=== PATIENT | male | born 1980 | race Two or more races ===

== ENCOUNTER 2017-05-19 12:54 | Emergency (ER) | payer MEDICAID ==
[2017-05-19 12:59] VITALS: RESP 16; O2SAT 98
--- NOTE | 2017-05-19 13:13 | CPEKG ---
Heart Rate: 75 RR Interval: 800 P-R Interval: 148 QRSD Interval: 100 QT Interval: 412 QTC Interval: 461 P [place]: 43 QRS [place]: -19 T Wave [place]: 22 EKG Severity - OTHERWISE NORMAL ECG - EKG Impression: SINUS RHYTHM EKG Impression: BORDERLINE LEFT AXIS DEVIATION Electronically Signed By: Dante Figueroa 19-May-2017 13:27:15
[2017-05-19] MEDS ORDERED: ACETAMINOPHEN 325 MG TAB PO ONE (13:23)
--- NOTE | 2017-05-19 13:26 | EDPHY ---
H & P Time Seen by Provider: 05/19/17 13:08 HPI/ROS: CHIEF COMPLAINT: Chest pains HISTORY OF PRESENT ILLNESS: 36-year-old man was sent from [facility] for evaluation of chest pain. He tells me he has been having central chest pressure which is sometimes sharp about once a month for the past 2 years. He had 1 yesterday in the morning which lasted about 10 min and he had another episode today at 1:00 p.m. which lasted 5 min. Describes it as central chest sharpness the feels like he swallowed water too fast and the maximum duration over the last 2 years is 15-20 minutes. It is not reliably associated with anything in particular. Symptoms are gone currently. Does not radiate when it happens. Moderate when present but gone now. REVIEW OF SYSTEMS: Eye: no change in vision ENT: no sore throat or ear symptoms or dental symptoms Cardiac: HPI Pulmonary: No cough, felt a little short of breath going up the stairs for the last month but attributes that to carrying his 2 children. Abdomen: no vomiting, diarrhea, abdominal pain Musculoskeletal: no back pain or leg swelling Skin: no rash Neuro: Patient describes intermittent headaches every day for the last 2 weeks with not thunderclap in onset or worst of life. They are bifrontal and a little bit better with 2 ibuprofen but not associated with trauma or injury or neck pain or neck stiffness or fever or sore throat. Constitutional: no fever : no urinary symptoms A comprehensive 10 point review of systems is otherwise negative aside from elements mentioned in the history of present illness. PAST MEDICAL HISTORY: Negative for diabetes hypertension or hypercholesterolemia. Kidney stones. Family history: Negative for venous thromboembolism or coronary disease at his age. Social history: team otr truck driver for [employer], nonsmoker, no drugs. General Appearance: Alert and conversant, cooperative. Eyes: No scleral icterus. No proptosis, pupils equal reactive, extraocular motion intact. ENT, Mouth: Normal mucous membranes. Normal pharynx, no trismus, no facial swelling or tenderness. Normal tympanic membranes. Respiratory: Normal respiratory effort, breath sounds equal, lungs are clear to auscultation. Cardiovascular: Regular rate and rhythm. Gastrointestinal: Abdomen is soft and non tender. Neurological: Alert, face symmetric, normal motor and sensory in extremities. Skin: Warm and dry, no rashes. Musculoskeletal: No peripheral edema. No calf tenderness. Psychiatric: Not agitated. Emergency Department course/MDM: Patient has headaches which I think are likely benign. Oral acetaminophen and primary care follow-up. Chest symptoms more likely to be inflammatory or muscular, plan for EKG troponin chest x-ray and D-dimer, discharge if negative. Heart score would be low risk. 1422:L labs reviewed including normal troponin and negative D-dimer. Stable for discharge. More likely muscular or inflammatory., possibly gastrointestinal as well. Smoking Status: Never smoked Constitutional: Initial Vital Signs Temperature (C) 36.6 C 05/19/17 12:55 Heart Rate 75 05/19/17 12:55 Respiratory Rate 16 05/19/17 12:55 Blood Pressure 143/92 H 05/19/17 12:55 O2 Sat (%) 98 05/19/17 12:55 O2 Delivery Mode Room Air Allergies/Adverse Reactions: No Known Allergies Allergy (Verified 05/19/17 12:55) Home Medications: Medication Instructions Recorded NK [No Known Home Meds] 05/19/17 Medical Decision Making - Diagnostics EKG Interpretation: 12-lead EKG interpreted by me; official reading is in trace master. My interpretation is sinus rhythm with borderline left axis, rate 75, no acute ischemic changes. Imaging Results: Imaging Impressions Chest X-Ray 05/19/17 13:23 Impression: No acute findings in the chest. Chest x-ray personally interpreted is negative. Imaging: I viewed and interpreted images myself Differential Diagnosis: Differential diagnosis considered for chest pain including but not limited to myocardial ischemia, aortic dissection, pericarditis, pulmonary embolus, chest wall pain, pleural inflammation and pulmonary infectious causes. Differential diagnosis considered for headache including but not limited to subarachnoid hemorrhage, migraine headache, tension headache and infectious causes such as meningitis, pharyngitis and sinusitis. - Data Points Laboratory Results: Laboratory Results 05/19/17 13:14 05/19/17 13:14 05/19/17 05/19/17 05/19/17 13:14 13:14 13:14 WBC 9.24 10^3/uL 10^3/uL (3.80-9.50) RBC 5.78 10^6/uL 10^6/uL (4.40-6.38) Hgb 17.3 g/dL g/dL (13.7-17.5) Hct 47.1 % % (40.0-51.0) MCV 81.5 fL fL (81.5-99.8) MCH 29.9 pg pg (27.9-34.1) MCHC 36.7 g/dL g/dL (32.4-36.7) RDW 14.4 % % (11.5-15.2) Plt Count 272 10^3/uL 10^3/uL (150-400) MPV 8.9 fL fL (8.7-11.7) Neut % (Auto) 53.6 % % (39.3-74.2) Lymph % (Auto) 39.6 % % (15.0-45.0) [place] % (Auto) 5.3 % % (4.5-13.0) Eos % (Auto) 0.8 % % (0.6-7.6) Baso % (Auto) 0.5 % % (0.3-1.7) Nucleat RBC Rel Count 0.0 % % (0.0-0.2) Absolute Neuts (auto) 4.95 10^3/uL 10^3/uL (1.70-6.50) Absolute Lymphs (auto) 3.66 10^3/uL H 10^3/uL (1.00-3.00) Absolute Monos (auto) 0.49 10^3/uL 10^3/uL (0.30-0.80) Absolute Eos (auto) 0.07 10^3/uL 10^3/uL (0.03-0.40) Absolute Basos (auto) 0.05 10^3/uL 10^3/uL (0.02-0.10) Absolute Nucleated RBC 0.00 10^3/uL 10^3/uL (0-0.01) Immature Gran % 0.2 % % (0.0-1.1) Immature Gran # 0.02 10^3/uL 10^3/uL (0.00-0.10) D-Dimer < 0.27 ug/mLFEU ug/mLFEU (0.00-0.50) Sodium 145 mEq/L mEq/L (135-145) Potassium 3.9 mEq/L mEq/L (3.5-5.2) Chloride 104 mEq/L mEq/L (97-110) Carbon Dioxide 21 mEq/l L mEq/l (22-31) Anion Gap 20 mEq/L H mEq/L (8-16) BUN 11 mg/dL mg/dL (7-23) Creatinine 0.9 mg/dL mg/dL (0.7-1.3) Estimated GFR > 60 Glucose 108 mg/dL H mg/dL (70-100) Calcium 9.9 mg/dL mg/dL (8.5-10.4) Troponin I < 0.012 ng/mL ng/mL (0.000-0.034) Medications Given: Discontinued Medications Acetaminophen (Tylenol) 650 mg PO EDNOW ONE Stop: 05/19/17 13:24 Last Admin: 05/19/17 14:05 Dose: 650 mg Departure - Departure Disposition: Home, Routine, Self-Care Clinical Impression: Chest pain Qualifiers: Chest pain type: unspecified Qualified Code(s): R07.9 - Chest pain, unspecified Condition: Good Instructions: Chest Pain (ED) Referrals: Debbie Johnson, PAC [Primary Care Provider] - As per Instructions
[2017-05-19 13:31] LABS: PLATELET COUNT 272 10^3/uL (150-400)
[2017-05-19 14:42] VITALS: BP 135/74; PULSE 66; TEMP 98.2
== END 2017-05-19 14:40 | disposition home or self-care (01) ==
DX: R07.9 Chest pain, unspecified (principal)

== ENCOUNTER 2017-09-16 20:13 | Emergency (ER) | payer MEDICAID ==
[2017-09-16 20:18] VITALS: BP 130/91
[2017-09-16] MEDS ORDERED: TDAP ADULT 0.5 ML INJ (BOOSTRIX) IM ONE (20:33)
--- NOTE | 2017-09-16 20:33 | EDPHY ---
General - History Smoking Status: Never smoked Time Seen by Provider: 09/16/17 20:24 Narrative: CHIEF COMPLAINT: Laceration HISTORY OF PRESENT ILLNESS: Patient presents with complaints of laceration to the forehead. He says he was working with a [employer] when the bar from the [employer] "smacked me in the head." He reports feeling "dazed for a minute," but he does not describe any actual loss of consciousness. No difficulty ambulating. No visual disturbance. No nausea, vomiting or dizziness. Moderate headache at the site of the injury only. He does not take any anticoagulants. No difficulty speaking. No injury elsewhere. Laceration has stopped bleeding with simple pressure. Uncertain tetanus status. No other associated complaints or modifying factors. TIME OF INJURY: 45 min prior to arrival TETANUS STATUS: Uncertain MEDICAL/SURGICAL/SOCIAL HISTORY: [facility] REVIEW OF SYSTEMS: Ten systems reviewed and are negative unless otherwise noted in the HPI EXAMINATION General Appearance: Alert, no distress Head: normocephalic. No Mcqueen sign. No raccoon eyes. No depression. Laceration to the nasal bridge in forehead as below. Neck: Supple nontender. Painless range of motion all planes Cardiovascular: Pulses normal throughout. Brisk cap refill Neurological: GCS 15. A&O, sensory symmetric, strength symmetric Skin: Warm and dry, no rash. There is a laceration to the central part of the forehead extending to the nasal bridge just medial to the left eyebrow. This measures a total of 2.5 cm. No involvement of the eyelid. No pulsatile bleeding Extremities: Nontender, no pedal edema DIFFERENTIAL DIAGNOSES: Including but not limited to closed head injury, intracranial hemorrhage, frontal sinus fracture, basilar skull fracture, laceration MDM: 8:30 p.m. Laceration to forehead just medial to the left eyelid extending to the nasal bridge. There is no injury to the eye lid. No injury to the left eye or right eye. His vision is intact by confrontation. I have anesthetize the area and we will proceed with irrigation closure. I do not feel he warrants a CT scan of the head by [place] CT head rules. He is awake alert no acute distress. 9:15 p.m. Laceration to the forehead and nasal bridge that has been closed without difficulty. Excellent approximation of the wound borders. He remains neuro intact in no acute distress. We discussed wound care. We discussed ED precautions. We discussed returning here in 5-7 days for suture removal. I do not feel he warrants antibiotic prophylaxis. He is comfortable this plan and discharged home stable condition. PROCEDURE: Laceration repair Consent: Verbal Location: Forehead and nasal bridge Length of repair: 2.5 cm Complexity: Simple Layer involvement: Single Anesthesia: Local. 0.5% Marcaine, 4 mL Irrigation: Extensive Debridement: None Procedure description: Following good anesthesia, the wound was copiously irrigated. Wound bed was explored with a sterile glove, and there is no foreign body noted. Wound is very superficial and does not extend into the galea or frontalis muscle. Wound borders were approximated well with good hemostasis. Tolerated well without complication. Suture/Staple material: 6-0 Prolene, 5 simple interrupted sutures Wound care: Routine as discussed Suture/Staple removal: 5 Days SUPERVISION: This patient was independently evaluated without direct involvement of or examination by the attending physician. ED Precautions: Worsening pain. Erythema, edema, cyanosis, pallor, paresthesia or anesthesia. (Abelardo Aleman) Discussion: The patient was evaluated and managed by the Physician Director Of Player Personnel. I discussed the patient's presentation and course with the physician prosthetics assistant and agree with the evaluation. My co-signature indicates that I have reviewed this chart and I agree with the findings and plan of care as documented. I am the secondary supervising physician. (Chasity Garcia) - Objective Vital Signs: Initial Vital Signs Temperature (C) 36.8 C 09/16/17 20:15 Heart Rate 89 09/16/17 20:15 Respiratory Rate 16 09/16/17 20:15 Blood Pressure 130/91 H 09/16/17 20:15 O2 Sat (%) 94 09/16/17 20:15 O2 Delivery Mode Room Air Allergies/Adverse Reactions: No Known Allergies Allergy (Verified 09/16/17 20:18) Home Medications: Medication Instructions Recorded NK [No Known Home Meds] 05/19/17 Medications Given: Discontinued Medications Diphtheria/Tetanus/Acell Pertussis (Boostrix) 0.5 ml IM .ONCE ONE Stop: 09/16/17 20:34 Last Admin: 09/16/17 20:46 Dose: 0.5 ml Departure - Departure Disposition: Home, Routine, Self-Care Clinical Impression: Laceration of forehead without complication Qualifiers: Encounter type: initial encounter Qualified Code(s): S01.81XA - Laceration without foreign body of other part of head, initial encounter Closed head injury Qualifiers: Encounter type: initial encounter Qualified Code(s): S09.90XA - Unspecified injury of head, initial encounter Condition: Good Instructions: Care For Your Stitches (ED), Concussion (ED), Head Injury (ED), Facial Laceration (ED) Additional Instructions: 1. Ice to the affected area this evening 2. Daily wound care as discussed 3. Return to emergency department for any change in your symptoms, neck pain or stiffness, fever, nausea, vomiting, visual disturbance, difficulty ambulating 4. Contact primary care physician tomorrow morning 5. Return here in 5 days for suture removal Referrals: NONE *PRIMARY CARE P,. [Primary Care Provider] - As per Instructions [facility],. [Clinic] - As per Instructions Physician,Emergency DeptMD [Medical Doctor] - As per Instructions (5 DAYS FOR SUTURE REMOVAL) Stand Alone Forms: Work Excuse
== END 2017-09-16 21:16 | disposition home or self-care (01) ==
PROC: 0HQ1XZZ Repair Face Skin, External Approach (ICD-10-PCS; principal; 2017-09-16)
DX: S01.81XA Laceration without foreign body of other part of head, initial encounter (principal); W45.8XXA Other foreign body or object entering through skin, initial encounter